=== PATIENT | male | born 1955 | race Caucasian/White ===

== ENCOUNTER 2020-06-09 05:28 | Emergency (ER) | payer OTHER ==
[~2020-06-09] VITALS: Ht 154.9 cm; Wt 73.0 kg
[2020-06-09 05:38] VITALS: Ht 154.9 cm; Wt 73.0 kg
[2020-06-09 06:25] LABS: CALCIUM 8.6 mg/dL (8.5-10.1); CARBON DIOXIDE 27.4 mmol/L (21-32); CHLORIDE SERUM 102 mmol/L (98-107); CREATININE SERUM 1.1 mg/dL (0.7-1.3); GFR1 > 60 mL/min; GLUCOSE SERUM 116 mg/dL (74-106); POTASSIUM SERUM 3.6 mmol/L (3.5-5.1); SODIUM SERUM 139 mmol/L (136-145)
[2020-06-09 06:29] LABS: ALBUMIN 3.8 g/dL (3.4-5.0); ALKALINE PHOSPHATASE 77 U/L (46-116); ALT/SGPT 58 U/L (16-63); AMYLASE 69 U/L (25-115); AST/SGOT 27 U/L (15-37); BILIRUBIN TOTAL 1.51 mg/dL (0.20-1.00); LIPASE 146 IU/L (73-393); TOTAL PROTEIN, SERUM 7.8 g/dL (6.4-8.2)
[2020-06-09 06:33] LABS: BASOPHIL % 0.1 % (0-2); PLATELET COUNT 142 x10^3mcL (130-400); RED CELL DISTRIBUTION WIDTH 13.1 % (11.5-14.5)
[2020-06-09 07:13] LABS: microscopic required? NO
[2020-06-09 07:19] LABS: urine erythrocyte NEGATIVE (NEGATIVE)
[2020-06-09 09:18] VITALS: BP 120/67
== END 2020-06-09 09:15 | disposition home or self-care (01) ==
LOC: ED 05:28
PROVIDERS: Emergency Medicine
DX: K57.92 Diverticulitis of intestine, part unspecified, without perforation or abscess without bleeding (principal); N21.0 Calculus in bladder
CPT/HCPCS: J1885; J7030; Q9967